=== PATIENT | male | born 1955 | race Caucasian/White ===

== ENCOUNTER 2016-11-05 20:34 | Emergency (ER) | payer BC, MEDICAID ==
[2016-11-05] MEDS ORDERED: PROMETHAZINE HCL 25 MG in 0.9 % SODIUM CHLORIDE 100ML 50 ML IVP ONE (22:30)
[2016-11-05 23:04] LABS: BASO % 0.8 % (0-6); EOS % 7.9 % (0-6); GRAN % 42.2 % (47-80); HEMOGLOBIN 16.5 gm/dl (14.0-18.0); LYMPH % 35.6 % (16-45); MEAN CELL VOLUME 93.5 fl (81-97); MEAN CORPUSCULAR HEMOGLOBIN 30.8 pg (27-33); MEAN PLATELET VOLUME 10.1 fl (7.4-10.4); MONO % 13.5 % (0-9); PLATELET COUNT 390 K/uL (130-400); RED BLOOD COUNT 5.35 M/uL (4.40-5.70); RED CELL DISTRIBUTION WIDTH 14.4 % (11.5-14.5); WHITE BLOOD COUNT W/O DIFF 7.9 K/uL (4.2-12.2)
[2016-11-05 23:14] LABS: ANION GAP 8.2 (7-16); BLOOD UREA NITROGEN 19 mg/dL (9-20); CARBON DIOXIDE 27.8 mmol/L (22-30); CREATININE 0.9 mg/dL (0.66-1.25); EST GLOMERULAR FILTRATION RATE > 60 ml/min; GLUCOSE,RANDOM 110 mg/dL (70-110)
[2016-11-05] MEDS ORDERED: MECLIZINE 25 MG TABLET PO ONE (23:19)
--- NOTE | 2016-11-05 23:27 | Emergency Department Record ---
History of Present Illness - General Chief Complaint: Dizziness Stated Complaint: LIGHT HEADED, DIZZY WAS TOLD HE HAS POLYCYTHEMIA Time Seen by Provider: 11/05/16 22:23 Source: Patient Mode of Arrival: Ambulatory Limitations: No limitations - History of Present Illness Initial Comments: pt c/o dizziness and room spinning since the am. pt also has a frontal headache and nausea ,no vomiting. pt states he was sweating earlier . MD Complaint: Dizziness Onset/Timin -: Days(s) Description: Difficulty walking, Lightheadedness, "Room spinning" History of Same: No History of Trauma: No Improves With: Nothing Worsens With: Position - Jayde Coma Scale Eye Response: (4) Open spontaneously Motor Response: (6) Obeys commands Verbal Response: (5) Oriented [place] Total: 15 - Symptoms of Stroke Symptoms of stroke: Dizziness, Vertigo - Related Data Home Medications Medication Instructions Recorded Confirmed Last Taken Gabapentin [Gabapentin] 300 mg PO TID 06/22/14 11/05/16 10/04/14 Cholecalciferol (Vitamin D3) 3,000 unit PO DAILY 11/05/16 11/05/16 Unknown [Vitamin D3] Duloxetine HCl [Duloxetine HCl] 30 mg PO DAILY 11/05/16 11/05/16 Unknown Previous Rx's Medication Instructions Recorded Meclizine HCl [Antivert] 25 mg PO Q8H #14 tablet 11/06/16 Allergies Allergy/AdvReac Type Severity Reaction Status Date / Time Iodinated Contrast Media - Allergy Unknown PT UNSURE Verified 10/04/14 18:36 Oral and OF REACTION Penicillins Allergy Unknown ANAPHYLAXIS Verified 10/04/14 18:36 Travel Screening - Travel/Exposure Within Last 30 Days Have you traveled within the last 30 days?: No Review of Systems Reviewed: No additional complaints except as noted below Constitutional: Reports: As per HPI. Denies: Chills, Fever, Malaise, Night sweats, Weakness, Weight change Eyes: Reports: As per HPI. Denies: Eye discharge, Eye pain, Photophobia, Vision change ENT: Reports: As per HPI. Denies: Congestion, Dental pain, Ear pain, Epistaxis , Hearing loss, Throat pain Respiratory: Reports: As per HPI. Denies: Cough, Dyspnea, Hemoptysis, Stridor, Wheezes Cardiovascular: Reports: As per HPI. Denies: Arrhythmia, Chest pain, Dyspnea on exertion, Edema, Murmurs, Orthopnea, Palpitations, Paroxysmal nocturnal dyspnea, Rheumatic Fever, Syncope Endocrine: Reports: As per HPI. Denies: Fatigue, Heat or cold intolerance, Polydipsia, Polyuria Gastrointestinal: Reports: As per HPI. Denies: Abdominal pain, Constipation, Diarrhea, Hematemesis, Hematochezia, Melena, Nausea, Vomiting Genitourinary: Reports: As per HPI. Denies: Dysuria, Frequency, Hematuria, Incontinence, Retention, Testicular pain, Testicular mass, Urgency Musculoskeletal: Reports: As per HPI. Denies: Arthralgia, Back pain, Gout, Joint swelling, Myalgia, Neck pain Skin: Reports: As per HPI. Denies: Bruising, Change in color, Change in hair/ nails, Lesions, Pruritus, Rash Neurological: Reports: As per HPI. Denies: Abnormal gait, Confusion, Headache, Numbness, Paresthesias, Seizure, Tingling, Tremors, Vertigo, Weakness Psychiatric: Reports: As per HPI. Denies: Anxiety, Auditory hallucinations, Depression, Homicidal thoughts, Suicidal thoughts, Visual hallucinations Hematological/Lymphatic: Reports: As per HPI. Denies: Anemia, Blood Clots, Easy bleeding, Easy bruising, Swollen glands Past Medical History - SOCIAL HISTORY Smoking Status: Current every day smoker Alcohol Use: None Drug Use: None - RESPIRATORY Hx Respiratory Disorders: No - CARDIOVASCULAR Hx Cardio Disorders: No - NEURO Hx Neuro Disorders: Yes Hx Neuropathy: Yes - GI Hx GI Disorders: No - Hx Genitourinary Disorders: No - ENDOCRINE Hx Endocrine Disorders: No - MUSCULOSKELETAL Hx Musculoskeletal Disorders: No - PSYCH Hx Psych Problems: No - HEMATOLOGY/ONCOLOGY Hx Hematology/Oncology Disorders: Yes Hx Blood Disorders: Yes (Polycythemia) Comment:: B 12 deficiency Family Medical History Any Significant Family History?: No Physical Exam - General General Appearance: Alert, Oriented x3, Cooperative, Mild distress - Head Head exam: Normal inspection - Eye Eye exam: Normal appearance, PERRL, EOMI, Nystagmus Pupils: Normal accommodation - ENT ENT exam: Normal exam, Mucous membranes moist, Normal external ear exam, Normal orophraynx, TM's normal bilaterally Ear exam: Normal external inspection. negative: External canal tenderness Nasal Exam: Normal inspection. negative: Discharge, Sinus tenderness Mouth exam: Normal external inspection, Tongue normal Teeth exam: Normal inspection. negative: Dental caries Throat exam: Normal inspection. negative: Tonsillar erythema, Tonsillar exudate - Neck Neck exam: Normal inspection, Full ROM. negative: Tenderness - Respiratory Respiratory exam: Normal lung sounds bilaterally. negative: Respiratory distress - Cardiovascular Cardiovascular Exam: Regular rate, Normal rhythm, Normal heart sounds - GI/Abdominal GI/Abdominal exam: Soft, Normal bowel sounds. negative: Tenderness - Rectal Rectal exam: Deferred - exam: Deferred - Extremities Extremities exam: Normal inspection, Full ROM, Normal capillary refill. negative: Tenderness - Back Back exam: Reports: Normal inspection, Full ROM. Denies: Muscle spasm, Rash noted, Tenderness - Neurological Neurological exam: Alert, CN II-XII intact, Normal gait, Oriented X3 - Psychiatric Psychiatric exam: Normal affect, Normal mood - Skin Skin exam: Dry, Intact, Normal color, Warm Course Vital Signs 11/05/16 22:12 Temperature 98.3 F Pulse Rate [ 88 Pulse Ox Probe] Respiratory 20 Rate Blood Pressure 121/80 [Left Arm] Pulse Ox 96 - Reevaluation(s) Reevaluation #1: 11/06/16 00:21 pt feels better Medical Decision Making - Management Options MDM Management: Additional Work-up Planned (e.g. ADM/Transfer/OP Study) - Data Complexity MDM Data: Labs Ordered and/or Reviewed, X-Ray Ordered and/or Reviewed, EKG Ordered and/or Reviewed - Lab Data Result diagrams: 11/05/16 23:01 11/05/16 23:01 Lab Results 11/05/16 11/05/16 Range/Units 23:01 23:01 WBC 7.9 (4.2-12.2) K/uL RBC 5.35 (4.40-5.70) M/uL Hgb 16.5 (14.0-18.0) gm/dl Hct 50.0 (42.0-52.0) % MCV 93.5 (81-97) fl MCH 30.8 (27-33) pg MCHC 33.0 (32-36) g/dl RDW 14.4 (11.5-14.5) % Plt Count 390 (130-400) K/uL MPV 10.1 (7.4-10.4) fl Gran % 42.2 L (47-80) % Lymphocytes % 35.6 (16-45) % Monocytes % 13.5 H (0-9) % Eosinophils % 7.9 H (0-6) % Basophils % 0.8 (0-6) % Sodium 142 (136-145) mmol/L Potassium 4.3 (3.5-5.1) mmol/L Chloride 106 (98-107) mmol/L Carbon Dioxide 27.8 (22-30) mmol/L Anion Gap 8.2 (7-16) BUN 19 (9-20) mg/dL Creatinine 0.9 (0.66-1.25) mg/dL Estimated GFR > 60 ml/min Random Glucose 110 (70-110) mg/dL Calcium 9.1 (8.5-10.1) mg/dL Disposition Disposition: Discharge Clinical Impression: Benign positional vertigo Qualifiers: Laterality: unspecified laterality Qualified Code(s): H81.10 - Benign paroxysmal vertigo, unspecified ear Disposition: Home, Self-Care Condition: (1) Good Instructions: Vertigo (ED), Benign Paroxysmal Positional Vertigo (ED) Additional Instructions: follow up with family doctor. return sooner if worse. Prescriptions: Meclizine HCl [Antivert] 25 mg PO Q8H #14 tablet Forms: Patient Portal Access
--- NOTE | 2016-11-06 00:37 | Emergency Department Record ---
History of Present Illness - General Chief Complaint: Dizziness Stated Complaint: LIGHT HEADED, DIZZY WAS TOLD HE HAS POLYCYTHEMIA Time Seen by Provider: 11/05/16 22:23 Source: Patient Mode of Arrival: Ambulatory Limitations: No limitations - History of Present Illness Onset/Timin -: Days(s) Description: Difficulty walking, Lightheadedness, "Room spinning" History of Same: No History of Trauma: No Improves With: Nothing Worsens With: Position - [place] Coma Scale Eye Response: (4) Open spontaneously Motor Response: (6) Obeys commands Verbal Response: (5) Oriented [place] Total: 15 - Symptoms of Stroke Symptoms of stroke: Dizziness, Vertigo - Related Data Home Medications Medication Instructions Recorded Confirmed Last Taken Gabapentin [Gabapentin] 300 mg PO TID 06/22/14 11/05/16 10/04/14 Cholecalciferol (Vitamin D3) 3,000 unit PO DAILY 11/05/16 11/05/16 Unknown [Vitamin D3] Duloxetine HCl [Duloxetine HCl] 30 mg PO DAILY 11/05/16 11/05/16 Unknown Previous Rx's Medication Instructions Recorded Meclizine HCl [Antivert] 25 mg PO Q8H #14 tablet 11/06/16 Allergies Allergy/AdvReac Type Severity Reaction Status Date / Time Iodinated Contrast Media - Allergy Unknown PT UNSURE Verified 10/04/14 18:36 Oral and OF REACTION Penicillins Allergy Unknown ANAPHYLAXIS Verified 10/04/14 18:36 Travel Screening - Travel/Exposure Within Last 30 Days Have you traveled within the last 30 days?: No Review of Systems Constitutional: Reports: As per HPI. Denies: Chills, Fever, Malaise, Night sweats, Weakness, Weight change Eyes: Reports: As per HPI. Denies: Eye discharge, Eye pain, Photophobia, Vision change ENT: Reports: As per HPI. Denies: Congestion, Dental pain, Ear pain, Epistaxis , Hearing loss, Throat pain Respiratory: Reports: As per HPI. Denies: Cough, Dyspnea, Hemoptysis, Stridor, Wheezes Cardiovascular: Reports: As per HPI. Denies: Arrhythmia, Chest pain, Dyspnea on exertion, Edema, Murmurs, Orthopnea, Palpitations, Paroxysmal nocturnal dyspnea, Rheumatic Fever, Syncope Endocrine: Reports: As per HPI. Denies: Fatigue, Heat or cold intolerance, Polydipsia, Polyuria Gastrointestinal: Reports: As per HPI. Denies: Abdominal pain, Constipation, Diarrhea, Hematemesis, Hematochezia, Melena, Nausea, Vomiting Genitourinary: Reports: As per HPI. Denies: Dysuria, Frequency, Hematuria, Incontinence, Retention, Testicular pain, Testicular mass, Urgency Musculoskeletal: Reports: As per HPI. Denies: Arthralgia, Back pain, Gout, Joint swelling, Myalgia, Neck pain Skin: Reports: As per HPI. Denies: Bruising, Change in color, Change in hair/ nails, Lesions, Pruritus, Rash Neurological: Reports: As per HPI. Denies: Abnormal gait, Confusion, Headache, Numbness, Paresthesias, Seizure, Tingling, Tremors, Vertigo, Weakness Psychiatric: Reports: As per HPI. Denies: Anxiety, Auditory hallucinations, Depression, Homicidal thoughts, Suicidal thoughts, Visual hallucinations Hematological/Lymphatic: Reports: As per HPI. Denies: Anemia, Blood Clots, Easy bleeding, Easy bruising, Swollen glands Past Medical History - SOCIAL HISTORY Smoking Status: Current every day smoker Alcohol Use: None Drug Use: None - RESPIRATORY Hx Respiratory Disorders: No - CARDIOVASCULAR Hx Cardio Disorders: No - NEURO Hx Neuro Disorders: Yes Hx Neuropathy: Yes - GI Hx GI Disorders: No - Hx Genitourinary Disorders: No - ENDOCRINE Hx Endocrine Disorders: No - MUSCULOSKELETAL Hx Musculoskeletal Disorders: No - PSYCH Hx Psych Problems: No - HEMATOLOGY/ONCOLOGY Hx Hematology/Oncology Disorders: Yes Hx Blood Disorders: Yes (Polycythemia) Comment:: B 12 deficiency Family Medical History Any Significant Family History?: No Physical Exam - General Limitations: No limitations Course Vital Signs 11/05/16 22:12 Temperature 98.3 F Pulse Rate [ 88 Pulse Ox Probe] Respiratory 20 Rate Blood Pressure 121/80 [Left Arm] Pulse Ox 96 Medical Decision Making - Management Options MDM Management: Additional Work-up Planned (e.g. ADM/Transfer/OP Study) - Data Complexity MDM Data: Labs Ordered and/or Reviewed, X-Ray Ordered and/or Reviewed, EKG Ordered and/or Reviewed - Lab Data Result diagrams: 11/05/16 23:01 11/05/16 23:01 Lab Results 11/05/16 11/05/16 11/06/16 Range/Units 23:01 23:01 00:03 WBC 7.9 (4.2-12.2) K/uL RBC 5.35 (4.40-5.70) M/uL Hgb 16.5 (14.0-18.0) gm/dl Hct 50.0 (42.0-52.0) % MCV 93.5 (81-97) fl MCH 30.8 (27-33) pg MCHC 33.0 (32-36) g/dl RDW 14.4 (11.5-14.5) % Plt Count 390 (130-400) K/uL MPV 10.1 (7.4-10.4) fl Gran % 42.2 L (47-80) % Lymphocytes % 35.6 (16-45) % Monocytes % 13.5 H (0-9) % Eosinophils % 7.9 H (0-6) % Basophils % 0.8 (0-6) % Sodium 142 (136-145) mmol/L Potassium 4.3 (3.5-5.1) mmol/L Chloride 106 (98-107) mmol/L Carbon Dioxide 27.8 (22-30) mmol/L Anion Gap 8.2 (7-16) BUN 19 (9-20) mg/dL Creatinine 0.9 (0.66-1.25) mg/dL Estimated GFR > 60 ml/min Random Glucose 110 (70-110) mg/dL Calcium 9.1 (8.5-10.1) mg/dL Troponin I < 0.012 (0.00-0.034) ng/mL - EKG Data -: EKG Interpreted by [facility] EKG: Abnormal EKG (rbbb) Disposition Clinical Impression: Benign positional vertigo Qualifiers: Laterality: unspecified laterality Qualified Code(s): H81.10 - Benign paroxysmal vertigo, unspecified ear Disposition: Home, Self-Care Condition: (1) Good Instructions: Vertigo (ED), Benign Paroxysmal Positional Vertigo (ED) Additional Instructions: follow up with family doctor. return sooner if worse. Prescriptions: Meclizine HCl [Antivert] 25 mg PO Q8H #14 tablet Forms: Patient Portal Access
--- NOTE | 2016-11-09 07:55 | CT SCAN REPORT ---
EXAM: CT OF THE HEAD WITHOUT CONTRAST HISTORY: DIZZINESS. TENSION HEADACHE BEHIND EYES. HISTORY OF BILATERAL CATARACT SURGERY. RIGHT HAND DOMINANCE. TECHNIQUE: Routine noncontrast CT examination of the head was obtained. Comparison: None. FINDINGS: The ventricles and subarachnoid spaces are normal in size. No area of abnormally increased or decreased attenuation is noted throughout the brain substance. No abnormal extraaxial fluid collection is seen. There is rightward deviation of the nasal septum. There is mild mucosal thickening within several ethmoid air cells bilaterally. The visualized paranasal sinuses and mastoid air cells are otherwise clear. Bilateral cataract surgery changes are present. The orbits, as visualized are otherwise unremarkable. IMPRESSION: 1. NO INTRACRANIAL ABNORMALITY IDENTIFIED. 2. MILD MUCOSAL THICKENING IN A FEW ETHMOID AIR CELLS BILATERALLY. JOB NUMBER: [id number] MTDD
== END 2016-11-06 01:09 | disposition home or self-care (01) ==
LOC: ER 20:34
DX: H81.10 Benign paroxysmal vertigo, unspecified ear (principal); R51 Headache; R11.0 Nausea; D75.1 Secondary polycythemia
CPT/HCPCS: 70450; 80048; 84484; 85025; 93005; 93010; 96374; 99284; J2550

== ENCOUNTER 2017-04-03 22:58 | Emergency (ER) | payer MEDICAID ==
--- NOTE | 2017-04-03 23:30 | Emergency Department Record ---
History of Present Illness - General Chief complaint: GI Bleed Stated complaint: BLOODY STOOL Time Seen by Provider: 04/03/17 23:25 Source: Patient Mode of Arrival: Ambulatory Limitations: No limitations - History of Present Illness Initial comments: 61 yo male presents to ED with a CC of bright red blood with a bowel movement tonight. Patient denies pain with his bowel movement, but reports previous history of hemorrhoids. Patient denies anticoagulation use. Patient denies abdominal pain symptoms tonight. Patient reports a family history of "internal bleeding" resulting in near which is why he presented to the ED tonight. 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 MD complaint: Gross hematochezia Onset/Timin -: Hour(s) Radiation: Other Quality: Cramping Consistency: Now resolved Improves with: None Worsens with: None Context: Hemorrhoids Associated Symptoms: Other bleeding, Weakness Treatments Prior to Arrival: None - Related Data Home Medications Medication Instructions Recorded Confirmed Last Taken Gabapentin [Gabapentin] 300 mg PO TID 06/22/14 04/03/17 04/03/17 Cholecalciferol (Vitamin D3) 3,000 unit PO DAILY 11/05/16 04/03/17 04/03/17 [Vitamin D3] Duloxetine HCl [Duloxetine HCl] 30 mg PO DAILY 11/05/16 04/03/17 04/03/17 Diclofenac Sodium 50 mg PO TID PRN 04/03/17 04/03/17 Unknown Allergies Allergy/AdvReac Type Severity Reaction Status Date / Time Iodinated Contrast- Oral and Allergy Unknown PT UNSURE Verified 10/04/14 18:36 IV Dye OF REACTION Penicillins Allergy Unknown ANAPHYLAXIS Verified 10/04/14 18:36 Travel Screening - Travel/Exposure Within Last 30 Days Have you traveled within the last 30 days?: No - Travel Symptoms Symptom Screening: None Review of Systems Constitutional: Denies: Chills, Fever, Malaise, Night sweats Eyes: Denies: Eye discharge, Eye pain ENT: Denies: Congestion, Ear pain, Epistaxis Respiratory: Denies: Cough, Dyspnea Cardiovascular: Denies: Chest pain, Dyspnea on exertion Endocrine: Denies: Fatigue, Heat or cold intolerance Gastrointestinal: Reports: Diarrhea, Hematochezia. Denies: Abdominal pain, Constipation, Nausea, Vomiting Genitourinary: Denies: Incontinence, Retention Musculoskeletal: Denies: Arthralgia, Back pain, Gout, Joint swelling Skin: Denies: Bruising, Change in color Neurological: Denies: Abnormal gait, Confusion, Headache, Seizure Psychiatric: Denies: Anxiety Hematological/Lymphatic: Denies: Anemia, Blood Clots Past Medical History - SOCIAL HISTORY Smoking Status: Current every day smoker Alcohol Use: None Drug Use: None - RESPIRATORY Hx Respiratory Disorders: No - CARDIOVASCULAR Hx Cardio Disorders: No - NEURO Hx Neuro Disorders: Yes Hx Neuropathy: Yes - GI Hx GI Disorders: No - Hx Genitourinary Disorders: No - ENDOCRINE Hx Endocrine Disorders: No - MUSCULOSKELETAL Hx Musculoskeletal Disorders: No - PSYCH Hx Psych Problems: No - HEMATOLOGY/ONCOLOGY Hx Hematology/Oncology Disorders: Yes Hx Blood Disorders: Yes (Polycythemia) Comment:: B 12 deficiency Family Medical History Any Significant Family History?: No Physical Exam - General General Appearance: Alert, Oriented x3, Cooperative, No acute distress, Other ( patient is well appearing on examination, talkative) Limitations: No limitations - Head Head exam: negative: Atraumatic, Normocephalic, Normal inspection Head exam detail: negative: Abrasion, Contusion, Multani's sign, General tenderness, Hematoma, Laceration - Eye Eye exam: Normal appearance. negative: Conjunctival injection, Periorbital swelling, Periorbital tenderness, Scleral icterus - ENT Ear exam: negative: Auricular hematoma, Auricular trauma Nasal Exam: negative: Active bleeding, Discharge, Dried blood, Foreign body Mouth exam: negative: Drooling, Laceration, Muffled voice, Tongue elevation - Neck Neck exam: Normal inspection. negative: Meningismus, Tenderness - Respiratory Respiratory exam: Normal lung sounds bilaterally. negative: Rales, Respiratory distress, Rhonchi, Stridor - Cardiovascular Cardiovascular Exam: Regular rate, Normal rhythm, Normal heart sounds - GI/Abdominal GI/Abdominal exam: Soft. negative: Rebound, Rigid, Tenderness - Rectal Rectal exam: Hemorrhoids (external hemorrhoids are present on examination), Normal inspection, Normal rectal tone. negative: Black stool, Bloody stool, Decreased rectal tone - exam: Deferred - Extremities Extremities exam: Normal inspection. negative: Calf tenderness, Pedal edema, Tenderness - Back Back exam: Denies: CVA tenderness (R), CVA tenderness (L) - Neurological Neurological exam: Alert, Normal gait, Oriented X3 - Psychiatric Psychiatric exam: Normal affect, Normal mood - Skin Skin exam: Normal color. negative: Abrasion Type of lesion: negative: abrasion Course Vital Signs 04/03/17 23:07 Temperature 98.1 F Pulse Rate 83 Respiratory 18 Rate Blood Pressure 138/99 Pulse Ox 95 - Reevaluation(s) Reevaluation #1: 04/03/17 23:32 Patient seen and examined, abdominal examination is benign and there is no evidence for an acute intra-abdominal process based on the patient's examination. Patient is well appearing, joking, and in no distress on examination. Previous hemorrhoids are present on rectal examination, heme negative currently on examination. Laboratory studies ordered, however CT is not felt to be indicated given the patient's normal abdominal examination. Will continue to observe pending laboratory studies. Reevaluation #2: 04/03/17 23:58 Labs reviewed, Hgb 16.2 (previous 15.8-16.5), and the patient is well appearing reading the newpaper on re-examination. Patient was updated on all results and counseled that he may have recurrent bleeding at home for perhaps 2-3 more episodes however his symptoms should gradually improve. Patient denies constipation symptoms, but was counseled to use a stool softener to avoid straining. Patient appears stable for discharge at this time. Medical Decision Making - Lab Data Result diagrams: 04/03/17 23:30 04/03/17 23:30 Disposition Disposition: Discharge Clinical Impression: Bright red blood per rectum Disposition: Home, Self-Care Condition: (2) Stable Instructions: Rectal Bleeding (ED) Additional Instructions: Return to ED if your symptoms worsen or if you have any concerns. Follow-up with Dr. Lowe in 3-5 days as directed. Forms: Patient Portal Access Time of Disposition: 00:00 Quality - Quality Measures Quality Measures: N/A - Blood Pressure Screening Does Patient Have Any of the Following: No Blood Pressure Classification: Hypertensive Reading Systolic Measurement: 138 Diastolic Measurement: 99 Screening for High Blood Pressure: < First Hypertensive BP, F/U Documented > [ G8950] First Hypertensive Follow-up Interventions: Referral to alternative/primary care provider.
[2017-04-03 23:35] LABS: HEMATOCRIT 48.2 % (42.0-52.0); HEMOGLOBIN 16.2 gm/dl (14.0-18.0); MEAN CELL VOLUME 93.2 fl (81-97); MEAN CORPUSCULAR HEMOGLOBIN 31.3 pg (27-33); MEAN CORPUSCULAR HGB CONC 33.6 g/dl (32-36); MEAN PLATELET VOLUME 9.2 fl (7.4-10.4); PLATELET COUNT 356 K/uL (130-400); RED BLOOD COUNT 5.17 M/uL (4.40-5.70); RED CELL DISTRIBUTION WIDTH 14.8 % (11.5-14.5); WHITE BLOOD COUNT W/O DIFF 8.8 K/uL (4.2-12.2)
[2017-04-03 23:46] LABS: ALB/GLOB RATIO 1.3 (1.1-1.8); ALKALINE PHOSPHATASE 64 U/L (38-126); ALT/SGPT 50 U/L (21-72); ANION GAP 10.5 (7-16); AST/SGOT 29 U/L (17-59); BILIRUBIN,TOTAL 0.46 mg/dL (0.2-1.3); BLOOD UREA NITROGEN 15 mg/dL (9-20); CARBON DIOXIDE 21.5 mmol/L (22-30); CREATININE 0.8 mg/dL (0.66-1.25); EST GLOMERULAR FILTRATION RATE > 60 ml/min; GLUCOSE,RANDOM 131 mg/dL (70-110)
== END 2017-04-04 00:14 | disposition home or self-care (01) ==
LOC: ER 22:58
DX: K62.5 Hemorrhage of anus and rectum (principal); K64.4 Residual hemorrhoidal skin tags; R53.1 Weakness; G62.9 Polyneuropathy, unspecified; D45 Polycythemia vera
CPT/HCPCS: 80053; 85027; 99283